=== PATIENT | female | born 1965 | race Caucasian/White ===

== ENCOUNTER 2016-10-07 16:46 | Observation (INO) | payer OTHER ==
[~2016-10-07] VITALS: Ht 162.6 cm; Wt 111.4 kg
[~2016-10-07 16:46] MED LIST: ACYCLOVIR800 MG PO; ALBUTEROL SULF8.5 GM IH; AMOXICILLIN500 M1 PO; ASPIRIN EC325 MG PO; ASPIRIN325 MG PO; ASPIRIN81 M2 PO; ATORVASTATIN CA20 MG PO; Biaxin PO; CYMBALTA60 MG PO; DELTASONE10 MG PO; DELTASONE20 M1 PO; ESCITALOPRAM OX10 MG PO; FLEXERIL10 MG PO; HYDROCODON-ACE1 EAC7 PO; LIDODERM 5% P1 PATCH TD; LIPITOR20 MG PO; METOPROLOL TART25 MG PO; MOTRIN800 MG PO; NORCO 5/3251 TABLET PO; PERCOCET 5/31 TABLET PO; PROVENTIL,2.5 MG/0.5 IH; PROVENTIL,2.5 MG/3 M IH; PriLOSEC OTC PO; TESSALON PERLE100 MG PO; VALIUM5 MG PO; ZOFRAN ODT8 MG PO
[2016-10-07 17:48] LABS: EOSINOPHIL (%) 0.8 % (0-5); EOSINOPHIL COUNT 0.1 K/uL (0-0.3); HEMATOCRIT 40.2 % (36.0-46.0); IMMATURE GRANULOCYTE (%) 0.4 % (0.0-0.7); INSTRUMENT ABS NEUTROPHIL CT 7.5 K/uL; LYMPHOCYTE COUNT 2.7 K/uL (1.0-2.8); MCH 29.4 PG (29.0-34.0); MCHC 34.6 G/DL (30.0-36.0); MCV 85.2 FL (83-99); MEAN PLAT.VOLUME 9.7 uM^3 (9.5-12.4); MONOCYTE (%) 8.2 % (3-12); MONOCYTE COUNT 0.9 K/uL (0-0.8); NEUTROPHIL (%) 66.5 % (45-76); NEUTROPHIL COUNT 7.5 K/uL (1.8-6.4); PLATELET COUNT 283 K/uL (156-360); RBC DIS.WIDTH-CV 12.8 % (11.8-14.6); RBC DIS.WIDTH-SD 39.7 % (39-53); RED BLOOD COUNT 4.72 M/uL (3.80-5.20); WHITE BLOOD COUNT 11.3 K/uL (4.1-10.2)
[2016-10-07 17:56] LABS: CHLORIDE 104 mEq/L (99-109); POTASSIUM 3.6 mEq/L (3.7-5.4); SODIUM 136 mEq/L (136-147)
[2016-10-07 17:58] LABS: GLUCOSE 95 mg/dL (70-99)
[2016-10-07 17:59] LABS: ANION GAP 8 MEQ/L (2-14)
[2016-10-07 18:00] LABS: TOTAL BILIRUBIN 0.3 mg/dL (0.0-1.0)
[2016-10-07 18:01] LABS: ALKALINE PHOSPHATASE 83 IU/L (3-129)
[2016-10-07 18:02] LABS: GFR ESTIMATE (CALCULATED) > 59 mL/min/
[2016-10-07 18:03] LABS: UREA NITROGEN (BUN) 13 mg/dL (9-23)
[2016-10-07 18:05] LABS: LIPASE 23 U/L (1.0-51.0)
[2016-10-07 18:08] LABS: TROP-I INTERPRETATION NEGATIVE; TROPONIN-I < 0.01 ng/mL (0.0-0.30)
[2016-10-07 19:07] LABS: ADD MIUA? YES; BILIRUBIN NEGATIVE; BLOOD NEGATIVE; COLOR YELLOW ((YELLOW)); GLUCOSE (STRIP) NEGATIVE; KETONES NEGATIVE; LEUKOCYTES NEGATIVE; NITRITE NEGATIVE; PROTEIN (STRIP) NEGATIVE; UROBILINOGEN 0.2 MG/DL (0.2-1.0)
[2016-10-07 19:29] LABS: BACTERIA 3+ /HPF; EPITHELIAL CELLS 2+ /HPF; MUCUS TRACE /LPF; RED BLOOD CELLS 0-5 /HPF (0-5); UCUL ADDED? YES
[2016-10-07] MEDS ORDERED: PROTONIX40 MG PO (22:00)
[2016-10-07] MEDS ORDERED: SINGULAIR10 MG PO (22:00)
[2016-10-07] MEDS ORDERED: TYLENOL WITH C1 EACH PO (22:01)
[2016-10-07] MEDS ORDERED: REGLAN10 MG PO (22:02)
[2016-10-07 22:25] VITALS: BP 171/80
[2016-10-08 00:50] LABS: TROP-I INTERPRETATION NEGATIVE; TROPONIN-I < 0.01 ng/mL (0.0-0.30)
[2016-10-08 01:30] VITALS: BP 139/68
[2016-10-08 04:00] VITALS: BP 136/85
[2016-10-08 07:07] LABS: HDL CHOLESTEROL 33 MG/DL (Desirable>=50); LDL CHOLESTEROL 128 mg/dL (Desirable<100); NON-HDL CHOLESTEROL 162 mg/dL (Desirable<160); TOTAL CHOLESTEROL 195 mg/dL (Desirable<200); TRIGLYCERIDES 169 MG/DL (Normal: <150)
[2016-10-08 07:10] LABS: TROP-I INTERPRETATION NEGATIVE; TROPONIN-I < 0.01 ng/mL (0.0-0.30)
[2016-10-08 08:06] VITALS: BP 127/95
[2016-10-08 08:15] LABS: Estimated Average Glucose 128 mg/dL (70-123); HEMOGLOBIN A1c (GLYCOHEMOGLOB) 6.1 % HGB (Below 5.7)
[2016-10-08] MEDS ORDERED: LIDOCAINE1 EACH TD (09:58)
[2016-10-08] MEDS ORDERED: CYCLOBENZAPRINE10 MG PO (09:59)
[2016-10-08] MEDS ORDERED: ATORVASTATIN CA80 MG PO (09:59)
== END 2016-10-08 11:52 | disposition home or self-care (01) ==
LOC: EME 16:46 → EDOF 20:53 → 5WEST 20:53 → ENRESERV 20:56 → 5WEST 22:15
PROVIDERS: Emergency Medicine; Physician Assistant Medical
DX: R07.9 Chest pain, unspecified (principal); R10.9 Unspecified abdominal pain; R53.1 Weakness; I10 Essential (primary) hypertension; E66.01 Morbid (severe) obesity due to excess calories; Z68.41 Body mass index [BMI] 40.0-44.9, adult; M54.9 Dorsalgia, unspecified; Z86.73 Personal history of transient ischemic attack (TIA), and cerebral infarction without residual deficits; K86.9 Disease of pancreas, unspecified; J45.909 Unspecified asthma, uncomplicated; D36.9 Benign neoplasm, unspecified site; Z82.3 Family history of stroke; Z82.49 Family history of ischemic heart disease and other diseases of the circulatory system
CPT/HCPCS: 70450; 70551; 71020; 71275; 72129; 80053; 80061; 80306 90; 81003; 83036; 83690; 84484; 85025; 87086; 93005; 94660; 99281; 99285; G0378; J1650; J3010; J7030

== ENCOUNTER 2016-10-27 11:15 | Emergency (ER) | payer OTHER ==
[~2016-10-27] VITALS: Ht 162.6 cm; Wt 107.8 kg
[~2016-10-27 11:15] MED LIST changes: +ATORVASTATIN CA80 MG PO; +CYCLOBENZAPRINE10 MG PO; +LIDOCAINE1 EACH TD; +PROTONIX40 MG PO; +REGLAN10 MG PO; +SINGULAIR10 MG PO; +TYLENOL WITH C1 EACH PO
[2016-10-27 12:05] LABS: HEMATOCRIT 45.4 % (36.0-46.0); MCV 87.6 FL (83-99); MEAN PLAT.VOLUME 9.4 uM^3 (9.5-12.4); PLATELET COUNT 284 K/uL (156-360); RBC DIS.WIDTH-CV 12.9 % (11.8-14.6); RBC DIS.WIDTH-SD 41.3 % (39-53); RED BLOOD COUNT 5.18 M/uL (3.80-5.20); WHITE BLOOD COUNT 11.4 K/uL (4.1-10.2)
[2016-10-27 12:17] LABS: CHLORIDE 106 mEq/L (99-109); POTASSIUM 4.3 mEq/L (3.7-5.4); SODIUM 140 mEq/L (136-147)
[2016-10-27 12:19] LABS: GLUCOSE 95 mg/dL (70-99)
[2016-10-27 12:20] LABS: ANION GAP 8 MEQ/L (2-14)
[2016-10-27 12:22] LABS: GFR ESTIMATE (CALCULATED) > 59 mL/min/
[2016-10-27 12:23] LABS: UREA NITROGEN (BUN) 11 mg/dL (9-23)
[2016-10-27 12:27] LABS: TROP-I INTERPRETATION NEGATIVE; TROPONIN-I < 0.01 ng/mL (0.0-0.30)
[2016-10-27 15:23] VITALS: BP 114/89
== END 2016-10-27 15:24 | disposition home or self-care (01) ==
LOC: EME 11:15
DX: R05 Cough (principal); R06.02 Shortness of breath; R10.30 Lower abdominal pain, unspecified; R53.83 Other fatigue; R07.89 Other chest pain; Z90.710 Acquired absence of both cervix and uterus; Z90.49 Acquired absence of other specified parts of digestive tract; Z87.442 Personal history of urinary calculi; Z87.891 Personal history of nicotine dependence
CPT/HCPCS: 71020; 80048; 84484; 85027; 93005; 99281; 99284

== ENCOUNTER → 2017-01-13 | Outpatient (CLI) | payer OTHER ==
[~2017-01-13] VITALS: Ht 162.6 cm; Wt 108.8 kg
[~2017-01-13] MED LIST changes: -ESCITALOPRAM OX10 MG PO; +LEXAPRO20 MG PO; +LIDOCARE1 EACH TP; +PROTONIX20 MG PO; -PROTONIX40 MG PO
[2017-01-13 14:32] LABS: HEMATOCRIT 43.6 % (36.0-46.0); MCH 28.4 PG (29.0-34.0); MEAN PLAT.VOLUME 9.4 uM^3 (9.5-12.4); PLATELET COUNT 291 K/uL (156-360); RBC DIS.WIDTH-CV 13.2 % (11.8-14.6); RBC DIS.WIDTH-SD 41.3 % (39-53); RED BLOOD COUNT 5.07 M/uL (3.80-5.20); WHITE BLOOD COUNT 10.8 K/uL (4.1-10.2)
[2017-01-13 14:40] LABS: INTER. NORMALIZED RATIO 1.1; PROTHROMBIN TIME 12.8 SEC (10.2-12.9)
[2017-01-13 14:42] LABS: PTT 32.6 SEC (25-37)
== END | disposition home or self-care (01) ==
LOC: AMB 14:05
PROVIDERS: Internal Medicine Gastroenterology
PROC: 0BJ08ZZ Inspection of Tracheobronchial Tree, Via Natural or Artificial Opening Endoscopic (ICD-10-PCS; principal; 2017-01-13)
DX: R05 Cough (principal); G47.33 Obstructive sleep apnea (adult) (pediatric); K29.70 Gastritis, unspecified, without bleeding; K29.80 Duodenitis without bleeding; K86.2 Cyst of pancreas; J45.909 Unspecified asthma, uncomplicated; E66.9 Obesity, unspecified; Z68.41 Body mass index [BMI] 40.0-44.9, adult; I25.2 Old myocardial infarction; Z82.0 Family history of epilepsy and other diseases of the nervous system
CPT/HCPCS: 85027; 85610; 85730; J0461; J2175; J2250; J2310; J2550; J3010